=== PATIENT | female | born 1945 | race Caucasian/White ===

== ENCOUNTER 2016-08-31 20:51 | Emergency (ER) | payer MEDICARE ==
[2016-08-31 21:19] LABS: BASOPHIL % 1.3 % (0-2); PLATELET COUNT 360 x10^3mcL (130-400)
[2016-08-31 21:29] LABS: CARBON DIOXIDE 27.4 mmol/L (21-32); CHLORIDE SERUM 103 mmol/L (98-107); GLUCOSE SERUM 86 mg/dL (74-106); POTASSIUM SERUM 3.9 mmol/L (3.5-5.1); SODIUM SERUM 139 mmol/L (136-145)
[2016-08-31 21:35] LABS: ALBUMIN 3.6 g/dL (3.4-5.0); ALKALINE PHOSPHATASE 128 U/L (46-116); ALT/SGPT 16 U/L (14-59); AST/SGOT 12 U/L (15-37); BILIRUBIN TOTAL 0.25 mg/dL (0.20-1.00); HDL CHOLESTEROL 56 mg/dL (40-60); PHOSPHOROUS 3.5 mg/dL (2.5-4.9); TOTAL PROTEIN, SERUM 7.2 g/dL (6.4-8.2); URIC ACID 2.9 mg/dL (2.6-6.0)
[2016-08-31 21:37] LABS: CHOLESTEROL 223 mg/dL (<200)
[2016-08-31 23:32] VITALS: BP 130/84
== END 2016-08-31 23:32 | disposition home or self-care (01) ==
LOC: ED 20:51
PROVIDERS: Emergency Medicine
DX: M54.5 Low back pain (principal)
CPT/HCPCS: 83880; J1170; J1885; J2405; J2550